=== PATIENT | male | born 1955 | race Caucasian/White ===

== ENCOUNTER 2018-09-11 14:11 | Inpatient (IN) | payer MEDICARE ==
[~2018-09-11] VITALS: Ht 182.9 cm; Wt 88.5 kg
[~2018-09-11 14:11] MED LIST: AMLO10TA82 PO; ASP325T PO; ASP81CT PO; CETI10TA17 PO; LISI40TA PO; LOSA50TA6 PO; LOVA20TA2 PO; OMEG-85 PO; OMEP20TA2 PO
[2018-09-11 14:29] LABS: BASOPHILS % (AUTO) 0 % (0-10); EOSINOPHILS # (AUTO) 0.1 10^3/uL (0.0-0.3); EOSINOPHILS % (AUTO) 2 % (0-10); HEMATOCRIT 45 % (40-54); HEMOGLOBIN 15.7 G/DL (13.3-17.7); LYMPHOCYTES # (AUTO) 1.3 X 10^3 (1.0-4.0); LYMPHOCYTES % (AUTO) 19 % (12-44); MEAN CORPUSCULAR HEMOGLOBIN 31 PG (25-34); MEAN CORPUSCULAR HGB CONC 35 G/DL (32-36); MEAN CORPUSCULAR VOLUME 88 FL (80-99); MEAN PLATELET VOLUME 10.1 FL (7.4-10.4); MONOCYTES # (AUTO) 0.6 X 10^3 (0.0-1.0); MONOCYTES % (AUTO) 8 % (0-12); NEUTROPHILS # (AUTO) 4.9 X 10^3 (1.8-7.8); NEUTROPHILS % (AUTO) 71 % (42-75); PLATELET COUNT 259 10^3/uL (130-400); RED CELL DISTRIBUTION WIDTH 12.9 % (10.0-14.5); WHITE BLOOD COUNT 6.9 10^3/uL (4.3-11.0)
[2018-09-11 14:42] LABS: FIBRIN DEGRADATION PRODUCTS 0.37 UG/ML (0.00-0.49); INR 1.1 (0.8-1.4); PROTHROMBIN TIME PATIENT 14.2 SEC (12.2-14.7)
[2018-09-11 14:43] LABS: BILIRUBIN,URINE NEGATIVE (NEGATIVE); CLARITY,URINE CLEAR; COLOR,URINE YELLOW; GLUCOSE, URINE (UA) NEGATIVE (NEGATIVE); KETONES,URINE NEGATIVE (NEGATIVE); LEUKOCYTE ESTERASE ,URINE NEGATIVE (NEGATIVE); NITRITE,URINE NEGATIVE (NEGATIVE); PH,URINE 7 (5-9); PROTEIN,URINE NEGATIVE (NEGATIVE); UROBILINOGEN,URINE NORMAL (NORMAL)
[2018-09-11 14:45] LABS: ALANINE AMINOTRANSFERASE 23 U/L (0-55); ALBUMIN 4.7 GM/DL (3.2-4.5); ALKALINE PHOSPHATASE 86 U/L (40-136); BILIRUBIN,TOTAL 0.8 MG/DL (0.1-1.0); BUN/CREATININE RATIO 13; CALCIUM 9.7 MG/DL (8.5-10.1); CARBON DIOXIDE 22 MMOL/L (21-32); CHLORIDE 105 MMOL/L (98-107); CREATININE SERUM 1.17 MG/DL (0.60-1.30); GFR ESTIMATED > 60; GLUCOSE 105 MG/DL (70-105); POTASSIUM 4.1 MMOL/L (3.6-5.0); SODIUM 140 MMOL/L (135-145); TOTAL PROTEIN 7.8 GM/DL (6.4-8.2)
--- NOTE | 2018-09-11 14:46 | Diagnostic Imaging Report ---
PROCEDURE: CT head wo r/o stroke. TECHNIQUE: Multiple contiguous axial images were obtained through the brain without the use of intravenous contrast. INDICATION: Left sided facial and arm numbness. COMPARISON: 02/25/2013 FINDINGS: There is no focal or generalized cerebral edema. No sulcal effacement. No loss of mayer-white matter differentiations. No evidence for elevated pressures. The ventricular system is nondilated and nondisplaced. The orbits, sinuses and calvarium nonacute. IMPRESSION: Stable unremarkable CT head. Dictated by: Dictated on workstation # [id number]
--- NOTE | 2018-09-11 14:48 | Diagnostic Imaging Report ---
INDICATION: Chest and face pain. COMPARISON: 11/10/2013. EXAMINATION: Single view of the chest was obtained. FINDINGS: Clear lungs, bilaterally. The heart is normal. There is no pneumothorax. The osseous structures are normal. IMPRESSION: Negative chest. Dictated by: Dictated on workstation # [id number]
[2018-09-11 14:53] LABS: BACTERIA,URINE NEGATIVE /HPF
--- NOTE | 2018-09-11 15:10 | ED Neurological Problem ---
General Chief Complaint: Neuro-Stroke Like Symptoms Stated Complaint: L SIDE FACIAL AND ARM DISCOMFORT Nursing Triage Note: PATIENT HERE FOR COMPLAINTS OF LEFT FACE/CHEEK NUMBNESS AND TINGLING THAT STARTED LAST NIGHT. IT IS NOT ALSO IN HIS LEFT SHOULDER, RAD DOWN TO HAND. HE SUZANNE HAS SOME NUMBNESS AND TINGLING IN THE LEFT TOES. HE HAS HX OF TIA. Nursing Sepsis Screen: No Definite Risk Source: patient, family Exam Limitations: no limitations History of Present Illness Date Seen by Provider: Sep 11, 2018 Time Seen by Provider: 15:04 Initial Comments This 63-year-old white male presents with strokelike symptoms. Patient relates that over the last 4-5 days he's had numbness and tingling on his right side primarily in his right arm and leg. These symptoms resolved. Today 6-1/2 hours prior to presentation in the emergency department patient developed left sided facial tingling and numbness which also involved his left arm to a lesser degree but not his left leg. The patient had no other neurologic complaints. He specifically denied any associated motor weakness. The patient's past medical history is significant in that he's had a previous TIA of his left leg 5 years ago. Patient takes an aspirin daily. At this time the patient is still having left sided facial numbness and tingling and to a lesser extent similar symptoms in his left arm. Patient's past medical history includes IBS, elevated cholesterol, and hypertension well controlled. Allergies and Home Medications Allergies Coded Allergies: No Known Drug Allergies (Unverified , 02/25/13) Home Medications Amlodipine Besylate 10 Mg Tablet, 10 MG PO DAILY, (Reported) Aspirin 325 Mg Tab, 325 MG PO DAILY, (Reported) Cetirizine Hcl 10 Mg Tablet, 10 MG PO DAILY, (Reported) Losartan Potassium 50 Mg Tablet, 50 MG PO DAILY Prescribed by: ADRYAN GROSS on 11/10/13 1537 Lovastatin 20 Mg Tablet, 20 MG PO DAILY, (Reported) Omeprazole 20 Mg Tablet.dr, 20 MG PO DAILY, (Reported) Patient Home Medication List Home Medication List Reviewed: Yes Review of Systems Review of Systems Constitutional: No chills Eyes: Denies Blindness, Denies Blurred Vision Ears, Nose, Mouth, Throat: denies ear pain Respiratory: No cough Cardiovascular: chest pain (patient is complaining of nonspecific chest wall discomfort.) Gastrointestinal: No abdominal pain, No diarrhea, No nausea, No vomiting Genitourinary: No dysuria, No frequency Musculoskeletal: No back pain, No joint pain Skin: No change in color, No rash Psychiatric/Neurological: No Symptoms Reported Endocrine: No Symptoms Reported Hematologic/Lymphatic: No Symptoms Reported Past Teqbjoj-Putbzh-Iwxlqb Hx Past Med/Social Hx: Reviewed Nursing Past Med/Soc Hx Patient Social History Alcohol Use: Occasionally Uses Recreational Drug Use: No Smoking Status: Never a Smoker 2nd Hand Smoke Exposure: No Recent Foreign Travel: No Contact w/Someone Who Travel: No Recent Infectious Disease Expo: No Immunizations Up To Date Tetanus Booster (TDap): Less than 5yrs Past Medical History Surgeries: Yes (HERNIA REPAIR, VASECTOMY AND ALSO HAD A CYST REMOVED FROM GENITAL AREA) Respiratory: No Cardiac: Yes (Vascular Dz) Neurological: Yes Reproductive Disorders: No Gastrointestinal: Yes Gastroesophageal Reflux, Hiatal Hernia Musculoskeletal: No Endocrine: No Dysphagia Loss of Vision: Denies Hearing Impairment: Denies Cancer: No Psychosocial: No Integumentary: No Blood Disorders: No Physical Exam Vital Signs Vital Signs - First Documented 09/11/18 14:15 Temp 97.3 Pulse 86 Resp 22 B/P (MAP) 152/90 (110) Pulse Ox 97 Capillary Refill : Less Than 3 Seconds Height, Weight, BMI Height: 6'0" Weight: 195lbs. 0oz. 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 tested, no motor/sensory deficits, alert, normal mood/affect, oriented x 3 Crainal Nerves: normal hearing, normal speech, PERRL, abnormal eye position Motor/Sensory: no motor deficit, sensory deficit (there is slightly decreased sensation over the left cheek and left forearm.) Skin: normal color, warm/dry; No rash Stroke Onset of Symptoms Date of Onset of Symptoms: Sep 11, 2018 Time of Symptom Onset: 08:00 Onset of Symptoms: Yes NIH Stroke Scale Assessment Level of Consciousness: 0=Alert (0), Level of Consciousness-Questions: 0= Answers both month/age (0), LOC Commands: 0=Performs both tasks (0), Visual Sanchez: 0=No visual loss (0), Facial Movement (Facial Paresis): 0=Normal symmetrical mnt (0), Motor Function-Arms Right: 0=No drift (0), Motor Function- Arms Left: 0=No drift (0), Motor Function-Legs Right: 0=No drift (0), Motor Function-Legs Left: 0=No drift (0), Limb Ataxia: 0=Absent (0), Sensory: 1=Mild to Moderate loss (1), Best Language: 0=No aphasia (0), Dysarthria: 0=Normal (0) , Extinction & Inattention: 0=No abnormality (0), Total: 1 IV - TPa Received IV - TPa Procedure Performed?: No Progress/Results/Core Measures Results/Orders Lab Results Laboratory Tests Test 09/11/18 14:19 09/11/18 14:22 09/11/18 14:35 Range/Units White Blood Count 6.9 4.3-11.0 10^3/uL Red Blood Count 5.10 4.35-5.85 10^6/uL Hemoglobin 15.7 13.3-17.7 G/DL Hematocrit 45 40-54 % Mean Corpuscular Volume 88 80-99 FL Mean Corpuscular Hemoglobin 31 25-34 PG Mean Corpuscular Hemoglobin Concent 35 32-36 G/DL Red Cell Distribution Width 12.9 10.0-14.5 % Platelet Count 259 130-400 10^3/uL Mean Platelet Volume 10.1 7.4-10.4 FL Neutrophils (%) (Auto) 71 42-75 % Lymphocytes (%) (Auto) 19 12-44 % Monocytes (%) (Auto) 8 0-12 % Eosinophils (%) (Auto) 2 0-10 % Basophils (%) (Auto) 0 0-10 % Neutrophils # (Auto) 4.9 1.8-7.8 X 10^3 Lymphocytes # (Auto) 1.3 1.0-4.0 X 10^3 Monocytes # (Auto) 0.6 0.0-1.0 X 10^3 Eosinophils # (Auto) 0.1 0.0-0.3 10^3/uL Basophils # (Auto) 0.0 0.0-0.1 10^3/uL Prothrombin Time 14.2 12.2-14.7 SEC INR Comment 1.1 0.8-1.4 Activated Partial Thromboplast Time 26 24-35 SEC D-Dimer 0.37 0.00-0.49 UG/ML Sodium Level 140 135-145 MMOL/L Potassium Level 4.1 3.6-5.0 MMOL/L Chloride Level 105 98-107 MMOL/L Carbon Dioxide Level 22 21-32 MMOL/L Anion Gap 13 5-14 MMOL/L Blood Urea Nitrogen 15 7-18 MG/DL Creatinine 1.17 0.60-1.30 MG/DL Estimat Glomerular Filtration Rate > 60 BUN/Creatinine Ratio 13 Glucose Level 105 70-105 MG/DL Calcium Level 9.7 8.5-10.1 MG/DL Corrected Calcium 8.5-10.1 MG/DL Total Bilirubin 0.8 0.1-1.0 MG/DL Aspartate Amino Transf (AST/SGOT) 23 5-34 U/L Alanine Aminotransferase (ALT/SGPT) 23 0-55 U/L Alkaline Phosphatase 86 40-136 U/L Troponin I < 0.30 <0.30 NG/ML Total Protein 7.8 6.4-8.2 GM/DL Albumin 4.7 H 3.2-4.5 GM/DL Glucometer 94 70-110 MG/DL Urine Color YELLOW Urine Clarity CLEAR Urine pH 7 5-9 Urine Specific [place] 1.005 L 1.016-1.022 Urine Protein NEGATIVE NEGATIVE Urine Glucose (UA) NEGATIVE NEGATIVE Urine Ketones NEGATIVE NEGATIVE Urine Nitrite NEGATIVE NEGATIVE Urine Bilirubin NEGATIVE NEGATIVE Urine Urobilinogen NORMAL NORMAL MG/DL Urine Leukocyte Esterase NEGATIVE NEGATIVE Urine RBC (Auto) NEGATIVE NEGATIVE Urine RBC NONE /HPF Urine WBC NONE /HPF Urine Squamous Epithelial Cells NONE /HPF Urine Crystals NONE /LPF Urine Bacteria NEGATIVE /HPF Urine Casts NONE /LPF Urine Mucus NEGATIVE /LPF Urine Culture Indicated NO My Orders Orders - ABDIAS MURILLO MD Cbc With Automated Diff (09/11/18 14:23) Protime With Inr (09/11/18 14:23) Partial Thromboplastin Time (09/11/18 14:23) Comprehensive Metabolic Panel (09/11/18 14:23) Fibrin Degradation Products (09/11/18 14:23) Troponin I (09/11/18 14:23) Ua Culture If Indicated (09/11/18 14:23) Chest 1 View, Ap/Pa Only (09/11/18 14:23) Ekg Tracing (09/11/18 14:23) Nothing By Mouth (09/11/18 Dinner) Accucheck Stat ONCE (09/11/18 14:23) Saline Lock/Iv-Start (09/11/18 14:23) Saline Lock/Iv-Start (09/11/18 14:23) Vital Signs Stroke Patient Q15M (09/11/18 14:23) Ct Head Wo-R/O Stroke (09/11/18 14:23) O2 (09/11/18 14:23) Intake & Output 06,14,22 (09/11/18 14:23) Monitor-Rhythm Ecg Trace Only (09/11/18 14:23) Dysphagia Screening Tool (09/11/18 14:23) Post Thrombolytic Adminstratio (09/11/18 14:23) Lipid Panel (09/12/18 06:00) Ct Angio Head/Neck (09/11/18 15:01) Iohexol Injection (Omnipaque 350 Mg/Ml 1 (09/11/18 15:15) Contrast Received (Contrast Received) (09/11/18 15:15) Ns (Ivpb) (Sodium Chloride 0.9%) (09/11/18 15:15) Medications Given in ED Current Medications Medications Dose Ordered Sig/Martín Route Start Time Stop Time Status Last Admin Dose Admin Sodium Chloride 250 ml ONCE ONCE IV 09/11/18 15:15 09/11/18 15:37 DC 09/11/18 15:32 80 ML Vital Signs/I&O 09/11/18 09/11/18 14:15 15:02 Temp 97.3 Pulse 86 Resp 22 B/P (MAP) 152/90 (110) Pulse Ox 97 98 Blood Pressure Mean: 110 FSBG Bedside Testing Finger Stick Blood Glucose: 94 Blood Glucose Action Taken: PHYSICIAN NOTIFIED Progress Progress Note : Time: 15:10 Progress Note The patient's CT of the head was unremarkable. Patient's EKG demonstrated a normal sinus rhythm and no acute current of injury. [facility] neurology, , was consult who felt the patient was not a candidate for TPA given the fact the patient's NIHSS score was 2 and the symptom onset was 6.5 hours ago. Her recommendation was that a CTA of the head and neck be performed. This has been ordered. Departure Communication (Admissions) Time/Spoke to Admitting Phy: 15:45 Dr. Maldonado Impression Primary Impression: Cerebrovascular accident due to cerebral artery occlusion Disposition: ADMITTED INPATIENT Condition: Unchanged Admissions Decision to Admit Reason: Admit from ER (General) Decision to Admit/Date: Sep 11, 2018 Time/Decision to Admit Time: 15:46 Departure-Patient Inst. Referrals: HEATHER COREY DO (PCP/Family) Primary Care Physician ABDIAS MURILLO MD Sep 11, 2018 15:09
[2018-09-11] MEDS ORDERED: IOHEXOL 350 MG/ML 100 ML (OMNIPAQUE 350) VIAL IV ONE (15:15)
[2018-09-11] MEDS ORDERED: RECEIVED CONTRAST (Hold Metformin) IV SCH (15:15)
[2018-09-11] MEDS ORDERED: NS 250 ML (IVPB) BAG IV ONE (15:15)
--- NOTE | 2018-09-11 15:56 | Diagnostic Imaging Report ---
PROCEDURE: CT angiography of the head and CT angiography of the neck with and without contrast. TECHNIQUE: Contiguous noncontrast images were obtained from the skull base through the vertex. After intravenous contrast administration, helical CT angiography of the neck was performed. Source data was reformatted into multiple MIP projections. Delayed post contrast acquisition was also obtained. INDICATION: Left face and cheek numbness, left shoulder pain radiating down the hand, tingling in the left toes. FINDINGS: The delayed post contrast-enhanced head CT revealed no abnormal parenchymal or meningeal enhancement. There is enhancement of the major dural venous sinuses. CT angio neck: The vertebral arteries are patent and codominant. Some calcified plaque at the carotid bulbs and bifurcations without hemodynamically significant stenosis. The cervical internal carotid arteries were patent. CT angio head: The intrathecal vertebral arteries and the basilar are patent. The bilateral baccarat dealer are patent. The intracranial ICAs are patent. The A1 segments, the ACOM, and the anterior cerebral arteries are patent. The bilateral middle cerebral arteries and their primary branches are patent. No intraluminal filling defect or large vessel occlusion. No thrombus is identified. No aneurysm or vascular malformation. IMPRESSION: Unremarkable CT angio neck and head. Dictated by: Dictated on workstation # [id number]
--- OUTSIDE RECORDS SUMMARY | 2018-09-11 15:56 | XMS REPORT | Continuity of Care Document ---
Author Author [facility] Organization [facility] Address Unknown Phone Unavailable Allergies Active Description Code Type Severity Reaction Onset Reported/Identified Relationship to Patient Clinical Status Yes No Known Drug Allergies [id number] Drug Allergy Unknown N/A 02/25/2013 Medications There is no data. Problems Date Dx Coded Attending Type Code Diagnosis Diagnosed By 04/10/2014 CAROL BIRCH DO V06.1 TDAP DX 11/08/2014 HEATHER COREY DO Ot 721.0 Procedures There is no data. Results There is no data. Encounters ACCT No. Visit Date/Time Discharge Status Pt. Type Provider Facility Loc./Unit Complaint [id number] 10/16/2014 11:07:00 10/16/2014 23:59:59 CLS Outpatient HEATHER COREY DO [facility] RAD [id number] 11/10/2013 13:11:00 11/10/2013 15:50:00 DIS Emergency [id number] 06/26/2013 14:00:00 06/26/2013 23:59:59 CLS Outpatient [id number] 03/14/2013 06:38:00 03/14/2013 23:59:59 CLS Outpatient [id number] 02/25/2013 13:45:00 02/26/2013 13:45:00 DIS Inpatient [id number] 02/10/2013 10:05:00 02/10/2013 23:59:59 CLS Outpatient [id number] 04/10/2014 14:52:00 04/10/2014 23:59:59 CLS Outpatient CAROL BIRCH DO
[2018-09-11 16:06] VITALS: BP 152/90
[2018-09-11] MEDS ORDERED: NS IV 1000 ML 1,000 ML IV SCH (16:15)
[2018-09-12] MEDS ORDERED: ASPIRIN E.C. 325 MG (ECOTRIN) TABLET PO SCH (09:00)
== END 2018-09-11 16:50 | disposition home or self-care (01) | DRG 66 ==
LOC: EDUNIT# 14:11 → ER 14:12 → ICU 15:25
PROVIDERS: ADMIT Internal Medicine; ATTEND Internal Medicine
DX: I63.59 Cerebral infarction due to unspecified occlusion or stenosis of other cerebral artery (principal); R29.702 NIHSS score 2; K58.9 Irritable bowel syndrome, unspecified; E78.00 Pure hypercholesterolemia, unspecified; I10 Essential (primary) hypertension; K21.9 Gastro-esophageal reflux disease without esophagitis; K44.9 Diaphragmatic hernia without obstruction or gangrene; Z86.73 Personal history of transient ischemic attack (TIA), and cerebral infarction without residual deficits; Z79.82 Long term (current) use of aspirin
CPT/HCPCS: 36415; 70450; 70496; 70498; 71045; 80053; 81000; 82962; 84484; 85025; 85379; 85610; 85730; 93005; 93041

== ENCOUNTER → 2018-09-19 | Outpatient (CLI) | payer MEDICARE ==
[~2018-09-19] MED LIST changes: +CATHETER FLUSH 10 ML SYR IV PRN; +REGADENOSON 0.4 MG/5 ML SYR (LEXISCAN) IV ONE
[2018-09-19 08:09] VITALS: BP 153/96
[2018-09-19 08:13] VITALS: BP 138/88
--- NOTE | 2018-09-19 13:32 | STRESS TEST ---
DATE OF SERVICE: 09/19/2018 NUCLEAR MYOVIEW REPORT REFERRING PHYSICIAN: Dr. Olvera. SUMMARY: The patient was injected with 10.7 mCi of technetium-99 Myoview and the resting images were obtained with peak stress level. A 32.7 mCi of technetium-99 Myoview were injected and the stress images were obtained. The resting and stress images were reviewed and compared in the short axis, horizontal long axis and vertical long axis views. Review of the images showed diaphragmatic attenuation with good radiotracer uptake, no significant ischemia or infarction. SSS is 3, SDS 1 and TID value 1.17. On the gated images, the left ventricle appeared to be normal size with normal contractility. Calculated ejection fraction is 51%. CONCLUSION: 1. Diaphragmatic attenuation with typical male pattern. No significant ischemia or infarction were seen. 2. Normal left ventricular size with normal contractility. Calculated ejection fraction is 51%. Job ID: [id number] DocumentID: [id number] Dictated Date: 09/19/2018 10:56:41 Baby Sitter Date: 09/19/2018 13:32:01 Dictated By: JACOB VOGEL MD
== END ==
LOC: CARD 06:38
PROVIDERS: ATTEND Internal Medicine
DX: R07.9 Chest pain, unspecified (principal); I10 Essential (primary) hypertension
CPT/HCPCS: 78452; 93017

== ENCOUNTER 2020-10-15 11:30 | Outpatient (RCR) | payer MEDICARE ==
[~2020-10-15 11:30] MED LIST changes: -CATHETER FLUSH 10 ML SYR IV PRN; -REGADENOSON 0.4 MG/5 ML SYR (LEXISCAN) IV ONE
== END 2021-01-13 | disposition home or self-care (01) ==
LOC: CARD 11:30
PROVIDERS: ATTEND Internal Medicine
DX: I49.1 Atrial premature depolarization (principal); I49.3 Ventricular premature depolarization; G45.9 Transient cerebral ischemic attack, unspecified

== ENCOUNTER → 2021-03-03 | Outpatient (CLI) | payer MEDICARE | LOC: LABNPT 08:29 | PROVIDERS: ATTEND Internal Medicine Critical Care Medicine | DX: G47.33 Obstructive sleep apnea (adult) (pediatric) (principal); Z20.822 Contact with and (suspected) exposure to COVID-19 | CPT/HCPCS: 87635 ==

== ENCOUNTER 2021-03-05 20:32 | Outpatient (CLI) | payer MEDICARE | END 2021-03-06 06:04 | disposition home or self-care (01) | LOC: SLEEP 20:32 | PROVIDERS: ATTEND Internal Medicine | DX: G47.33 Obstructive sleep apnea (adult) (pediatric) (principal); R09.02 Hypoxemia | CPT/HCPCS: 95811 ==

== ENCOUNTER → 2021-07-28 | Outpatient (CLI) | payer MEDICARE ==
--- NOTE | 2021-07-28 12:55 | Diagnostic Imaging Report ---
PROCEDURE: CT chest without contrast. TECHNIQUE: Multiple contiguous axial images were obtained through the chest without the use of intravenous contrast. Auto Exposure Controls were utilized during the CT exam to meet ALARA standards for radiation dose reduction. INDICATION: Thoracic aortic aneurysm. FINDINGS: The aortic root measures 4.1 cm. The descending thoracic aorta measures 2.9 cm. There is mild atherosclerotic change. No mediastinal or hilar adenopathy of pathologic size. The lungs are well aerated. There is mild pleural scarring noted. No parenchymal masses or infiltrates. No pleural effusion or pericardial effusion. There is some calcification of the left anterior descending coronary artery. No bony lesion is demonstrated. IMPRESSION: 1. The ascending thoracic aorta measures 4.1 cm. 2. There is atherosclerotic disease with some coronary artery calcification. Dictated by: Dictated on workstation # [id number]
== END ==
LOC: RAD 11:15
PROVIDERS: ATTEND Internal Medicine
DX: I25.10 Atherosclerotic heart disease of native coronary artery without angina pectoris (principal); I71.2 Thoracic aortic aneurysm, without rupture
CPT/HCPCS: 71250

== ENCOUNTER → 2022-08-06 | Outpatient (CLI) | payer MEDICARE ==
--- NOTE | 2022-08-06 12:34 | Diagnostic Imaging Report ---
CT CHEST WO TECHNIQUE: Multiple contiguous axial images were obtained through the chest without the use of intravenous contrast. All CT scans use one or more of the following dose optimizing techniques: automated exposure control, MA and/or KvP adjustment based on a patient size and exam type, or iterative reconstruction. INDICATION: Aortic aneurysm. COMPARISON: 07/28/2021. FINDINGS: Lungs and airway: No abnormality in the trachea. There is no pneumonia or edema. Right hemidiaphragm eventration is unchanged. No pneumonia or edema. There are no suspicious pulmonary nodules. Pleura: No pleural effusion or pneumothorax. Heart and mediastinum: No supraclavicular or axillary lymphadenopathy. No mediastinal or hilar lymphadenopathy. The heart is normal in size. Mid ascending aorta is unchanged in size measuring approximately 4.0 cm. Descending thoracic aorta is normal in caliber. Upper abdomen: No abnormality in the upper abdomen. Musculoskeletal: No worrisome focal osseous lesions. IMPRESSION: 1. Stable size of ascending aorta measuring 4.0 cm. Dictated by: Dictated on workstation # [id number]
== END ==
LOC: RAD 08:15
PROVIDERS: ATTEND Internal Medicine
DX: I71.20 Thoracic aortic aneurysm, without rupture, unspecified (principal)
CPT/HCPCS: 71250